=== PATIENT | male | born 1955 | race Caucasian/White ===

== ENCOUNTER 2016-11-05 12:39 | Outpatient (CLI) | payer OTHER | END 2016-11-05 12:40 | disposition home or self-care (01) | DX: Z00.00 Encounter for general adult medical examination without abnormal findings (principal) ==

== ENCOUNTER 2017-07-11 09:25 | Emergency (ER) | payer OTHER ==
[2017-07-11 10:17] LABS: BILIRUBIN,URINE NEGATIVE (NEGATIVE)
[2017-07-11 10:20] LABS: UA CHARGE (STRIP ONLY) YES; UR CULTURE IF IND NOT INDICATED
--- NOTE | 2017-07-11 11:10 | ED Physician Documentation ---
History of Present Illness - Stated complaint Stated Complaint: MALE - Chief complaint Chief Complaint: Abd Pain - Additonal information Additional information: hx from pt 62 male hx BPH about a week of severe diff emptying bladder took flomax rx which he has from prior episodes and able to urinate with some relief of sx briefly but still with fairly severe low LLQ pain no fever chills no NV chronic back pain but no new pain or injury no numbness or weakness no testicular pain Review of Systems Constitutional: denies: Fever, Chills GI: reports: Abdominal Pain. denies: Nausea, Vomiting, Diarrhea : reports: Unable to Void Endocrine: denies: Easy bruising / bleeding Immunocompromised: denies: Immunocompromised PD PAST MEDICAL HISTORY - Past Medical History Respiratory: Pneumonia : Benign prostate hypertrophy Other Past Medical History: Skin cancer - Past Surgical History Past Surgical History: Yes General: Appendectomy Ortho: Other - Present Medications Home Medications: Ambulatory Orders Medication Instructions Recorded Confirmed Benzonatate [Tessalon] 100 mg PO TID PRN #20 capsule 11/06/15 07/11/17 D-Methorphan/PE/Acetaminophen 1 mg PO DAILY 11/06/15 07/11/17 [Daytime Cold-Flu Relief Sftgl] Oseltamivir [Tamiflu] 75 mg PO BID #9 capsule 11/06/15 07/11/17 guaiFENesin/CODEINE [Robitussin AC] 5 - 10 ml PO Q6H PRN #120 udc 11/06/1507/11 Ibuprofen [Motrin] 400 mg PO Q6H PRN #30 tablet 07/11/17 Metronidazole [Flagyl] 500 mg PO BID #20 tablet 07/11/17 Oxycodone HCl/Acetaminophen 1 each PO Q6HR PRN #15 tablet 07/11/17 [Percocet 5-325 mg Tablet] Sulfamethox/Trimeth 800/160 1 each PO BID #20 tablet 07/11/17 [Bactrim Ds 800/160] Tamsulosin [Flomax] 07/11/17 Tamsulosin [Flomax] 0.4 mg PO DAILY #7 capsule 07/11/17 - Allergies Allergies/Adverse Reactions: Allergies Allergy/AdvReac Type Severity Reaction Status Date / Time Penicillins AdvReac Anaphylaxis Verified 11/06/15 19:52 - Social History Does the pt smoke?: No Smoking Status: Never smoker Does the pt drink ETOH?: Yes Does the pt have substance abuse?: No - Immunizations Immunizations are current?: No - POLST Patient has POLST: No PD ED PE NORMAL - Vitals Vital signs reviewed: Yes - Cardiac Cardiac: RRR - Respiratory Respiratory: No respiratory distress - Abdomen Abdomen: Soft, Other (marked TTP LLQ, no inguina or femoral hermia palp) - Male Male : Other (no scrotal swelling, no hernia, circ, no blood) - Extremities Extremities: Normal ROM s pain Results - Vitals Vitals: Vital Signs - 24 hr 07/11/17 09:49 Temperature 36.4 C L Heart Rate 71 Respiratory 18 Rate Blood Pressure 142/89 H O2 Saturation 100 Oxygen O2 Source Room air - Labs Labs: Laboratory Tests 07/11/17 07/11/17 07/11/17 10:13 11:40 11:40 WBC 8.1 RBC 5.21 Hgb 16.4 Hct 46.9 MCV 90.0 MCH 31.4 H MCHC 34.9 RDW 13.0 Plt Count 204 MPV 8.2 Neut # 5.9 Lymph # 1.3 L [place] # 0.7 Eos # 0.1 Baso # 0.0 Absolute Nucleated RBC 0.00 Nucleated RBC % 0.0 Sodium 137 Potassium 4.2 Chloride 99 L Carbon Dioxide 26 Anion Gap 12.0 BUN 14 Creatinine 1.0 Estimated GFR (MDRD) 76 L Glucose 94 Calcium 9.8 Total Bilirubin 1.3 H AST 35 ALT 35 Alkaline Phosphatase 53 Total Protein 8.1 Albumin 4.7 Globulin 3.4 Albumin/Globulin Ratio 1.4 Lipase 25 Urine Color YELLOW Urine Clarity CLEAR Urine pH 6.0 Ur Specific [place] 1.020 Urine Protein NEGATIVE Urine Glucose (UA) NEGATIVE Urine Ketones NEGATIVE Urine Occult Blood NEGATIVE Urine Nitrite NEGATIVE Urine Bilirubin NEGATIVE Urine Urobilinogen 0.2 (NORMAL) Ur Leukocyte Esterase NEGATIVE Ur Microscopic Review NOT INDICATED Urine Culture Comments NOT INDICATED - Rads (name of study) CT [facility] Radiology: See rad report (1) focal uncomplicated mid proximal sigmoid colon diverticultitis 2) distal L ureteral 6 X 3.5 mm calculusu with mild focal distal hydro but no proximal hydro, indeterminate low attentuation R renal lesions, enlarged prostate) Departure - Departure Disposition: 01 Home, Self Care Clinical Impression: Renal colic on right side, Diverticulitis Condition: Good Instructions: ED Stone Renal W Colic, ED Diverticulitis Follow-Up: MIGDALIA TORRES MD [Physician No Access] - [facility] [Provider Group] (to make an appointment with urology) Prescriptions: Oxycodone HCl/Acetaminophen [Percocet 5-325 mg Tablet] 1 each PO Q6HR PRN #15 tablet PRN Reason: Severe Pain Ibuprofen [Motrin] 400 mg PO Q6H PRN #30 tablet PRN Reason: Pain Metronidazole [Flagyl] 500 mg PO BID #20 tablet Sulfamethox/Trimeth 800/160 [Bactrim Ds 800/160] 1 each PO BID #20 tablet Tamsulosin [Flomax] 0.4 mg PO DAILY #7 capsule Comments: Your have two major problems going on 1) you have a large left sided kidney stone which has passed most of the way to the bladder but is still causing some swelling and inflammation of the ureter - for this i recommend taking an anti-inflammatory like motrin, flomax to relax the ureter, and if needed for severe pain percocet. Hopefully the stone will pass on it's own - please filter your urine and save the stone when it passes for Dr Torres to have tested at the lab to see if it is an oxalate or calcium stone (then he can make some diet suggestions to help prevent you from having more stones). If the stone does not pass, please call the urologist to schedule an appointment to have it removed. If the pain is severe despite the medications i prescribed, come back to the ER. Also the radiologist same some very tiny spots in yoru right kidney that are likely nothing to worry about but he recommends you get an ultrasound of the kidney at some point - Dr Torres can order that for you. 2) you have a colon infection called diverticulitis. For this I recommend antibiotics, a stool softener, and a clear liquid diet to rest the bowels, and then avoiding any food with sharp crunchy bits like popcorn, seeds, tortilla chips and raw carrots Forms: Activity restrictions
[2017-07-11 11:44] LABS: BASOPHILS % (AUTO) 0.6 %; EOSINOPHILS # (AUTO) 0.1 10^3/uL (0.0-0.7); EOSINOPHILS % (AUTO) 1.2 %; HCT - HEMATOCRIT 46.9 % (42.0-52.0); HGB - HEMOGLOBIN 16.4 g/dL (14.0-18.0); LYMPHOCYTES # (AUTO) 1.3 10^3/uL (1.5-3.5); LYMPHOCYTES % (AUTO) 16.4 %; MEAN CORPUSCULAR HEMOGLOBIN 31.4 pg (27.0-31.0); MEAN CORPUSCULAR HGB CONC 34.9 g/dL (32.0-36.0); MEAN PLATELET VOLUME 8.2 fL (7.4-11.4); MONOCYTES # (AUTO) 0.7 10^3/uL (0.0-1.0); MONOCYTES % (AUTO) 8.7 %; NEUTROPHILS # (AUTO) 5.9 10^3/uL (1.5-6.6); NEUTROPHILS % (AUTO) 73.1 %; RED BLOOD COUNT 5.21 10^6/uL (4.70-6.10); UNCORRECTED WHITE BLOOD COUNT 8.1 x10^3/uL; WHITE BLOOD COUNT 8.1 x10^3/uL (4.8-10.8)
[2017-07-11 11:57] LABS: ALBUMIN/GLOBULIN RATIO 1.4 (1.0-2.2); BILIRUBIN,TOTAL 1.3 mg/dL (0.2-1.0); CALCIUM 9.8 mg/dL (8.5-10.3); POTASSIUM 4.2 mmol/L (3.5-5.0); TOTAL PROTEIN 8.1 g/dL (6.7-8.2)
--- NOTE | 2017-07-11 12:06 | CT Report ---
EXAM: CT ABDOMEN AND PELVIS EXAM DATE: 07/11/2017 11:31 AM. CLINICAL HISTORY: Abdominal left are quadrant pain. Urinary symptoms. COMPARISONS: None. TECHNIQUE: Routine helical CT imaging was performed through the abdomen and pelvis. IV contrast: None . Enteric contrast: No. Reconstructions: Coronal and sagittal. In accordance with CT protocol optimization, one or more of the following dose reduction techniques w ere utilized for this exam: automated exposure control, adjustment of mA and/or KV based on patient s ize, or use of iterative reconstructive technique. FINDINGS: Lung Bases: Unremarkable. Liver: Unenhanced images of the liver are unremarkable. Gallbladder/Bile Ducts: Unremarkable. Spleen: Normal. Pancreas: Normal. Adrenal Glands: Normal. Kidneys: No nephrolithiasis. No hydronephrosis. Medial mid right renal low-attenuation lesion measuri ng 10 cm and medial upper pole right renal low-attenuation lesion measuring 11 mm, indeterminate. Mil d perinephric stranding slightly more on the left than the right. In addition, in the distal left ure ter just proximal to the left UVJ there is an oval calculus measuring 6 x 3.5 mm. Mild left periurete ral stranding is seen. No significant left ureteral dilatation. Peritoneal Cavity/Bowel: Stomach is mildly distended and unremarkable. No small bowel obstruction. Sm all fatty umbilical hernia. Appendix is not visualized. No right lower quadrant or pericecal inflamma tory changes. Diverticuli are seen largely in the descending and sigmoid colon. Pericolonic inflammat ory changes and mild thickening are seen along the margins of a diverticula in the mid proximal sigmo id colon. No pericolonic abscess or free air. No intra-abdominal fluid collections. Pelvic Organs: Urinary bladder is minimally distended. Urinary bladder may be mildly thickened. Prost ate gland is enlarged. Fatty bilateral inguinal hernia. No pelvic adenopathy. No pelvic free fluid. Vasculature: Atherosclerotic calcified plaque. No aneurysm. Bones: Mild degenerative changes of lower thoracic and lumbar spine mild lumbar facet arthropathy. No acute osseous abnormalities. Other: None. IMPRESSION: 1. Focal uncomplicated mid proximal sigmoid colon diverticulitis. 2. Distal left ureteral 6 x 3.5 mm calculus with mild focal left ureteral dilatation distally and lef t periureteral stranding involving the distal left ureter. No significant proximal left ureteral dila tation or hydronephrosis. 3. Colonic diverticulosis. No diverticulitis. 4. Low-attenuation right renal lesions, indeterminate. 4. Mild prostate gland enlargement. [facility] Referring Provider Line: [phone] SITE ID: [id number]
[2017-07-11] MEDS ORDERED: SULFAMETH/TRIMETH DS 800/160 MG TABLET PO STA (13:05)
[2017-07-11] MEDS ORDERED: metroNIDAZOLE 250 MG TABLET PO STA (13:05)
[2017-07-11] MEDS ORDERED: SULFAMETH/TRIMETH DS 800/160 MG TABLET PO ONE (13:17)
[2017-07-11] MEDS ORDERED: metroNIDAZOLE 250 MG TABLET PO ONE (13:17)
[2017-07-11 13:34] VITALS: BP 140/91
== END 2017-07-11 13:34 | disposition home or self-care (01) ==
LOC: ED 09:25
DX: K57.32 Diverticulitis of large intestine without perforation or abscess without bleeding (principal); N20.1 Calculus of ureter; N40.0 Benign prostatic hyperplasia without lower urinary tract symptoms; Z85.828 Personal history of other malignant neoplasm of skin
CPT/HCPCS: 36415; 51798; 74176; 80053; 81003; 83690; 85025; 99283; 99284; A9270; 81001; 87086

== ENCOUNTER 2017-09-12 08:00 | Outpatient (CLI) | payer OTHER ==
[2017-11-19 18:41] LABS: SPECIMEN SOURCE Kidney
== END 2017-09-12 23:59 ==
LOC: LAB.WCP 08:00
PROVIDERS: ATTEND Family Medicine
DX: N20.0 Calculus of kidney (principal)
CPT/HCPCS: 82365

== ENCOUNTER 2017-11-12 08:35 | Outpatient (CLI) | payer OTHER ==
[2017-11-12 12:55] LABS: BASOPHILS % (AUTO) 0.9 %; EOSINOPHILS # (AUTO) 0.1 10^3/uL (0.0-0.7); EOSINOPHILS % (AUTO) 2.5 %; HGB - HEMOGLOBIN 15.5 g/dL (14.0-18.0); LYMPHOCYTES # (AUTO) 1.2 10^3/uL (1.5-3.5); LYMPHOCYTES % (AUTO) 27.7 %; MEAN CORPUSCULAR HEMOGLOBIN 31.6 pg (27.0-31.0); MEAN CORPUSCULAR HGB CONC 34.9 g/dL (32.0-36.0); MEAN CORPUSCULAR VOLUME 90.8 fL (80.0-94.0); MEAN PLATELET VOLUME 9.1 fL (7.4-11.4); MONOCYTES # (AUTO) 0.4 10^3/uL (0.0-1.0); MONOCYTES % (AUTO) 9.6 %; NEUTROPHILS # (AUTO) 2.6 10^3/uL (1.5-6.6); NEUTROPHILS % (AUTO) 59.3 %; PLT - PLATELET COUNT 225 10^3/uL (130-450); RED BLOOD COUNT 4.91 10^6/uL (4.70-6.10); RED CELL DISTRIBUTION WIDTH 13.3 % (12.0-15.0); WHITE BLOOD COUNT 4.4 x10^3/uL (4.8-10.8)
[2017-11-12 12:58] LABS: ALBUMIN 4.5 g/dL (3.2-5.5); ALBUMIN/GLOBULIN RATIO 1.7 (1.0-2.2); ALKALINE PHOSPHATASE 40 IU/L (42-121); ALT ALANINE AMINOTRANSFERASE 30 IU/L (10-60); AST ASPARTATE AMINOTRANSFERASE 36 IU/L (10-42); BILIRUBIN,TOTAL 1.2 mg/dL (0.2-1.0); BUN - BLOOD UREA NITROGEN 17 mg/dL (6-20); CALCIUM 9.2 mg/dL (8.5-10.3); CARBON DIOXIDE - CO2 28 mmol/L (21-32); CHLORIDE 103 mmol/L (101-111); CHOL/HDL RATIO 4.1 (<5.0); CHOLESTEROL 191 mg/dL; GFR - MDRD 76 (>89); GLUCOSE 96 mg/dL (70-100); HDL CHOLESTEROL 47 mg/dL; LDL CHOLESTEROL,CALCULATED 120 mg/dL; LDL/HDL RATIO 2.6 (<3.6); SODIUM 138 mmol/L (135-145); TOTAL PROTEIN 7.2 g/dL (6.7-8.2); VLDL CHOLESTEROL 24 mg/dL
== END 2017-11-12 08:36 | disposition home or self-care (01) ==
LOC: LAB.WCP 08:35
PROVIDERS: ATTEND Family Medicine
DX: Z00.00 Encounter for general adult medical examination without abnormal findings (principal)
CPT/HCPCS: 36415; 80053; 80061; 83721; 84443; 85025